=== PATIENT | male | born 1960 | race African-American/Black ===

== ENCOUNTER 2025-04-12 13:44 | Outpatient (OUT) | payer OTHER, SELFPAY ==
--- OUTSIDE RECORDS SUMMARY | 2025-04-12 13:47 | XMS_ITS | Clinical Summary ---
Author Organization [facility] Address [address] [facility] [place] [address] Care Team Providers Care Social Services Manager Name Role Phone Unavailable Primary Care Provider Unavailabl e Encounters DateTypeDepartmentCare GdcnWqeennpwuct72/22/2025Orders Only [facility] Karri [facility] Medicine [address] [place] [id number] Irving Lee MD from Last 3 Months Social History Tobacco UseTypesPacks/DayYears UsedDateSmoking Tobacco: Never AssessedSex and Gender InformationValueDate RecordedSex Assigned at BirthNot on fileLegal Sex Male08/15/2022 7:05 PM EDTGender IdentityNot on fileSexual OrientationNot on file Plan of Treatment Not on file Procedures Procedure NamePriorityDate/TimeAssociated DiagnosisCommentsCYTOLOGY, URINE Tptruqn0503/17/2025 8:44 AM EDTfrom Last 3 Months Results * Cytology, urine (03/17/2025 8:44 AM EDT)Specimen (Source)Anatomical Location / LateralityCollection Method / VolumeCollection TimeReceived TimeUrineUrine specimen obtained by clean catch procedure / Unknown Narrative Authorizing ProviderResult TypeResult StatusBrkrystyna OLIVER CYTOLOGY ORDERABLESFinal Result from Last 3 Months Insurance
== END 2025-04-12 13:45 | disposition home or self-care (01) ==
LOC: PST 13:45
PROVIDERS: Visit Provider Urology
DX: Z01.818 Encounter for other preprocedural examination (principal); R97.20 Elevated prostate specific antigen [PSA]

== ENCOUNTER 2025-04-13 07:53 | Day surgery (SDC) | payer OTHER, SELFPAY ==
--- OUTSIDE RECORDS SUMMARY | 2025-04-13 08:01 | XMS_ITS | Patient Health Record ---
Author Organization [facility] Address [address] [place] [address] Care Team Providers Care Lead Software Tester Name Role Phone None, None Primary Care Provider Ryann Kowalski Unavailable [phone] Allergies No Known Allergies Reason For Referral No Information Medications Medication SIG (Take, Route, Frequency, Duration) Notes Start Date End Date Status Sildenafil Citrate Active Social History Tobacco Use: Social History Observation Description Date Details (start date - stop date) Former Smoker NA - NA Tobacco Control (Standard) Question Answer Notes Tobacco use: Former smoker Problems Problem Type SNOMED Code ICD Code Onset Dates Problem Status W/U Status Risk Notes Problem Elevated blood press ure reading without diagnosis of hypertension (782525761) Elevated blood pressure (not hypertension) (R03.0) Activeconfirmed Vital Signs Temperature 99.1 degrees Fahrenheit 06/18/2024 Respiratory Rate16 /min06/18/20247282Iyznlp88.5 in06/18/20242581Jxccaz982 lbs06/18/2024 BMI23.2 kg/m206/18/2024 Encounters Encounter Location Date Provider Diagnosis [address] [place] [address] 06/18/2024 Ryann Parker Cellulitis of right upper extremity L03.113 Assessments Encounter Date Diagnosis (ICD Code) Assessment Notes Treatment Notes Treatment Clinical Notes Section Notes 06/18/2024 Cellulitis of right upper extrem ity (ICD-10 - L03.113) Cellulitis: Care Instructions material was printed. Keep arm elevated above the level of the heart as much as possible. Take antibiotics and steroids as prescribed. Report to ER if no improvement in 48 hours or any worsening before that time.06/18/2024OtherAmoxicillin/Clavulanate Oral Tablet (AMOXICILLIN/CLAVULANIC ACID - ORAL) material was printed, Prednisone Oral Tablet (PREDNISONE - ORAL) material was printed Plan Of Treatment No Information Insurance Providers Payer Name Payer Address Payer Phone Subscriber Number Group Number Insured Name Patient Relationship to Insured Coverage Start Date Coverage End Date Medical [facility] [address] [place] [address] [id number] RACHEL NICK Self - patient is the insured Medical (General) History Medical History History ICD Code NONE HX Enlarged prostrateSurgical History Surgery Date(Month/Year) BROKEN ARM Hospitalization History Reason Date(Month/Year) ABOVE SURGERY
--- OUTSIDE RECORDS SUMMARY | 2025-04-13 08:01 | XMS_ITS | Clinical Summary ---
Author Organization [facility] Address [address] [facility] [place] [address] Care Team Providers Care Wire Sawyer Name Role Phone Unavailable Primary Care Provider Unavailabl e Encounters DateTypeDepartmentCare VsdqYcezbkjdjeq20/22/2025Orders Only [facility] Karri [facility] Medicine [address] [place] [phone] Irving Lee MD from Last 3 Months Social History Tobacco UseTypesPacks/DayYears UsedDateSmoking Tobacco: Never AssessedSex and Gender InformationValueDate RecordedSex Assigned at BirthNot on fileLegal Sex Male08/15/2022 7:05 PM EDTGender IdentityNot on fileSexual OrientationNot on file Plan of Treatment Not on file Procedures Procedure NamePriorityDate/TimeAssociated DiagnosisCommentsCYTOLOGY, URINE Dyarrzn0803/17/2025 8:44 AM EDTfrom Last 3 Months Results * Cytology, urine (03/17/2025 8:44 AM EDT)Specimen (Source)Anatomical Location / LateralityCollection Method / VolumeCollection TimeReceived TimeUrineUrine specimen obtained by clean catch procedure / Unknown Narrative Authorizing ProviderResult TypeResult StatusBrkrystyna OLIVER CYTOLOGY ORDERABLESFinal Result from Last 3 Months Insurance
[2025-04-13] MEDS: GENTAMICIN SULFATE 80 MG/2 ML VIAL 120 MG IM (08:10)
[2025-04-13 08:19] VITALS: BP 160/94; PULSE 65; TEMP 36.1; O2SAT 100
[2025-04-13] MEDS: LIDOCAINE 2% JELLY 20 ML UR (08:53)
[2025-04-13] MEDS: LIDOCAINE HCL 1% 100 MG/10 ML MDV INJ (08:56)
--- NOTE | 2025-04-13 09:16 | PM.URSON ---
Urology Surgery Operative Note Operative Note Procedure Date: 04/13/25 Pre-op Diagnosis: Elevated PSA and prostate lesion on MRI Post-op Diagnosis: same as pre-op Procedures performed: Transrectal prostate MRI fusion biopsies Anesthesia: local and other (Periprostatic block) Primary Surgeon: Gabino Encinas Complications: None Estimated blood loss (mL): 5 Findings: No hypoechoic lesions Specimens: 1. 7 biopsies from the area of interest sent separately. 2. Mapped out biopsies. 6 from the left side starting from the base going towards the apex and 6 from the right side similarly. Drains: None Indications for Procedures: This gentleman has an elevated PSA of 5.9. He also has a PI-RADS 4 lesion on his prostate MRI. He now presents for transrectal prostate MRI fusion biopsies. He has signed an informed consent after risks were explained. Some of these risks include bleeding, infection, urosepsis and anesthesia to name a few. Detailed description of Procedure: The patient was kept on the [facility] bed and brought into the operating room. He was rotated to the left lateral decubitus position. Timeout was done by all parties in the room. We all agreed upon the patient's identification and the planned procedures for this patient. I started by passing Betadine soaked sponges per rectum and swabbing his rectum numerous times. I then passed 2% lidocaine gel per rectum. The Griffin Petenko ultrasound probe was passed per rectum. Segmentation was done so as diffuse the MRI images onto the live ultrasound. I then used 1% plain lidocaine and did a periprosthetic block in the usual fashion. I then identified the area of interest and we were able to successfully obtain 7 satisfactory cores from this area of interest. They were all sent separately labeled area of interest. I then did mapped out biopsies in the usual fashion. 6 were obtained from the left side starting from the base going towards the apex. 6 were obtained from the right side similarly. The probe was removed. We had 19 satisfactory cores at the end of the procedure. He was then transferred to PACU and discharged to home.
== END 2025-04-13 09:25 | disposition home or self-care (01) ==
LOC: SURGOUT 07:59
PROVIDERS: Visit Provider Urology
PROC: (CPT 55700; principal; 2025-04-13 08:00)
DX: C61 Malignant neoplasm of prostate (principal); N42.9 Disorder of prostate, unspecified; R97.20 Elevated prostate specific antigen [PSA]; N40.0 Benign prostatic hyperplasia without lower urinary tract symptoms; R31.9 Hematuria, unspecified; Z80.42 Family history of malignant neoplasm of prostate
CPT/HCPCS: 55700; J1580